=== PATIENT | male | born 1995 | race Caucasian/White ===

== ENCOUNTER 2018-08-14 22:18 | Emergency (ER) | payer OTHER ==
[~2018-08-14 22:18] MED LIST: ECO325 PO; METOPROLOL TART25 M1 PO; SER25 PO; ZES10 PO
== END 2018-08-14 22:59 | disposition left against medical advice (07) ==
LOC: ED 22:18
DX: Z53.21 Procedure and treatment not carried out due to patient leaving prior to being seen by health care provider (principal)

== ENCOUNTER 2018-08-14 23:01 | Emergency (ER) | payer OTHER ==
[~2018-08-14] VITALS: Ht 188 cm; Wt 118.4 kg
[2018-08-14 23:30] VITALS: Ht 188 cm; Wt 118.4 kg
[2018-08-15 02:15] VITALS: BP 125/75
== END 2018-08-15 02:15 | disposition left against medical advice (07) ==
LOC: ED 23:01
DX: N34.2 Other urethritis (principal); J45.909 Unspecified asthma, uncomplicated; F15.10 Other stimulant abuse, uncomplicated
CPT/HCPCS: J0696

== ENCOUNTER 2018-08-17 22:32 | Emergency (ER) | payer OTHER ==
[~2018-08-17] VITALS: Ht 188 cm; Wt 117.9 kg
[2018-08-17 22:41] VITALS: Ht 188 cm; Wt 117.9 kg
[2018-08-18 01:42] VITALS: BP 120/75
== END 2018-08-18 01:42 | disposition home or self-care (01) ==
LOC: ED 22:32
DX: N34.2 Other urethritis (principal); J45.909 Unspecified asthma, uncomplicated; F15.10 Other stimulant abuse, uncomplicated
CPT/HCPCS: 87491; 87591; J0696

== ENCOUNTER 2018-08-18 15:45 | Emergency (ER) | payer OTHER ==
[~2018-08-18] VITALS: Ht 188 cm; Wt 117.9 kg
[2018-08-18 15:50] VITALS: BP 110/86; Ht 188 cm; Wt 117.9 kg
== END 2018-08-18 16:40 | disposition left against medical advice (07) ==
LOC: ED 15:45
DX: Z53.21 Procedure and treatment not carried out due to patient leaving prior to being seen by health care provider (principal)

== ENCOUNTER 2018-08-19 12:26 | Emergency (ER) | payer OTHER ==
[~2018-08-19] VITALS: Ht 188 cm; Wt 118.8 kg
[2018-08-19 12:38] VITALS: BP 120/71; Ht 188 cm; Wt 118.8 kg
== END 2018-08-19 13:51 | disposition home or self-care (01) ==
LOC: ED 12:26
DX: T83.098A Other mechanical complication of other urinary catheter, initial encounter (principal); N48.89 Other specified disorders of penis

== ENCOUNTER 2018-08-27 20:59 | Emergency (ER) | payer OTHER ==
[~2018-08-27] VITALS: Ht 182.9 cm; Wt 118.4 kg
[2018-08-27 21:04] VITALS: Ht 182.9 cm; Wt 118.4 kg
[2018-08-27 22:25] VITALS: BP 123/61
[2018-08-27 22:30] LABS: microscopic required? NO
[2018-08-27 22:52] LABS: UA SPECIFIC GRAVITY 1.015 (1.005-1.035)
[2018-08-27 22:53] LABS: urine erythrocyte NEGATIVE (NEGATIVE)
== END 2018-08-27 22:25 | disposition home or self-care (01) ==
LOC: ED 20:59
PROVIDERS: Emergency Medicine
DX: R30.0 Dysuria (principal); N48.89 Other specified disorders of penis

== ENCOUNTER 2018-09-06 15:10 | Emergency (ER) | payer OTHER ==
[~2018-09-06] VITALS: Ht 188 cm; Wt 117.9 kg
[2018-09-06 15:27] VITALS: Ht 188 cm; Wt 117.9 kg
[2018-09-06 17:42] VITALS: BP 120/68
== END 2018-09-06 17:42 | disposition home or self-care (01) ==
LOC: ED 15:10
DX: F15.10 Other stimulant abuse, uncomplicated (principal); F20.9 Schizophrenia, unspecified; J45.909 Unspecified asthma, uncomplicated

== ENCOUNTER 2018-10-16 22:18 | Emergency (ER) | payer OTHER ==
[~2018-10-16] VITALS: Ht 188 cm; Wt 115.7 kg
[2018-10-16 22:27] VITALS: BP 142/83
== END 2018-10-17 00:12 | disposition left against medical advice (07) ==
LOC: ED 22:18
DX: Z53.21 Procedure and treatment not carried out due to patient leaving prior to being seen by health care provider (principal)

== ENCOUNTER 2018-11-22 13:22 | Emergency (ER) | payer OTHER ==
[~2018-11-22] VITALS: Ht 188 cm; Wt 116.1 kg
[2018-11-22 13:35] VITALS: BP 116/70; Ht 188 cm; Wt 116.1 kg
== END 2018-11-22 15:07 | disposition left against medical advice (07) ==
LOC: ED 13:22
DX: Z53.21 Procedure and treatment not carried out due to patient leaving prior to being seen by health care provider (principal)

== ENCOUNTER 2019-01-09 09:38 | Emergency (ER) | payer OTHER ==
[~2019-01-09] VITALS: Ht 182.9 cm; Wt 118.0 kg
[2019-01-09 09:54] VITALS: Ht 182.9 cm; Wt 118.0 kg
[2019-01-09 10:39] LABS: BASOPHIL % 0.5 % (0-2); PLATELET COUNT 278 x10^3mcL (130-400); RED CELL DISTRIBUTION WIDTH 14.5 % (11.5-14.5)
[2019-01-09 10:57] LABS: CALCIUM 7.7 mg/dL (8.5-10.1); CARBON DIOXIDE 29.5 mmol/L (21-32); CHLORIDE SERUM 104 mmol/L (98-107); CREATININE SERUM 0.9 mg/dL (0.7-1.3); GFR1 > 60 mL/min; GLUCOSE SERUM 112 mg/dL (74-106); POTASSIUM SERUM 3.8 mmol/L (3.5-5.1); SODIUM SERUM 141 mmol/L (136-145)
[2019-01-09 11:10] LABS: ALKALINE PHOSPHATASE 63 U/L (46-116); ALT/SGPT 70 U/L (16-63); AST/SGOT 30 U/L (15-37); BILIRUBIN TOTAL 0.2 mg/dL (0.20-1.00); TOTAL PROTEIN, SERUM 6.9 g/dL (6.4-8.2)
[2019-01-09 11:13] LABS: ALBUMIN 3.3 g/dL (3.4-5.0)
[2019-01-09 11:39] LABS: BILIRUBIN DIRECT 0.07 mg/dL (0.0-0.2)
[2019-01-09 11:40] VITALS: BP 134/90
[2019-01-09 11:57] LABS: AMPHETAMINE QUAL UR NONE DETECTED (See below)
== END 2019-01-09 11:40 | disposition home or self-care (01) ==
LOC: ED 09:38
PROVIDERS: Student in an Organized Health Care Education/Training Program
DX: R53.1 Weakness (principal); R44.3 Hallucinations, unspecified; J45.909 Unspecified asthma, uncomplicated
CPT/HCPCS: 36415; 84439; Q0092

== ENCOUNTER 2019-03-08 17:37 | Emergency (ER) | payer OTHER ==
[~2019-03-08] VITALS: Ht 188 cm; Wt 121.1 kg
[2019-03-08 17:43] VITALS: BP 137/76; Ht 188 cm; Wt 121.1 kg
== END 2019-03-08 19:28 | disposition left against medical advice (07) ==
LOC: ED 17:37
DX: Z53.21 Procedure and treatment not carried out due to patient leaving prior to being seen by health care provider (principal)

== ENCOUNTER 2019-03-09 17:30 | Emergency (ER) | payer OTHER ==
[~2019-03-09] VITALS: Ht 188 cm; Wt 120.7 kg
[2019-03-09 17:50] VITALS: BP 138/81; Ht 188 cm; Wt 120.7 kg
== END 2019-03-09 19:58 | disposition left against medical advice (07) ==
LOC: ED 17:30
DX: Z53.21 Procedure and treatment not carried out due to patient leaving prior to being seen by health care provider (principal)

== ENCOUNTER 2019-04-22 09:13 | Emergency (ER) | payer OTHER ==
[~2019-04-22] VITALS: Ht 188 cm; Wt 116.1 kg
[2019-04-22 09:16] VITALS: Ht 188 cm; Wt 116.1 kg
[2019-04-22 10:17] VITALS: BP 117/60
== END 2019-04-22 10:17 | disposition home or self-care (01) ==
LOC: ED 09:13
DX: S01.511A Laceration without foreign body of lip, initial encounter (principal); F17.210 Nicotine dependence, cigarettes, uncomplicated; E66.9 Obesity, unspecified; J45.909 Unspecified asthma, uncomplicated; Z68.32 Body mass index [BMI] 32.0-32.9, adult; Y04.8XXA Assault by other bodily force, initial encounter; Y93.89 Activity, other specified; Y92.89 Other specified places as the place of occurrence of the external cause; Y99.8 Other external cause status
CPT/HCPCS: 90715; 99406

== ENCOUNTER 2019-05-02 20:11 | Emergency (ER) | payer OTHER ==
[~2019-05-02] VITALS: Ht 188 cm; Wt 117.0 kg
[2019-05-02 20:17] VITALS: Ht 188 cm; Wt 117.0 kg
[2019-05-02 21:11] LABS: BASOPHIL % 0.5 % (0-2); PLATELET COUNT 293 x10^3mcL (130-400); RED CELL DISTRIBUTION WIDTH 14.5 % (11.5-14.5)
[2019-05-02 21:13] LABS: CARBON DIOXIDE 27.5 mmol/L (21-32); CHLORIDE SERUM 105 mmol/L (98-107); CREATININE SERUM 1.1 mg/dL (0.7-1.3); GFR1 > 60 mL/min; GLUCOSE SERUM 111 mg/dL (74-106); POTASSIUM SERUM 4.3 mmol/L (3.5-5.1); SODIUM SERUM 142 mmol/L (136-145)
[2019-05-02 21:16] LABS: ALBUMIN 3.8 g/dL (3.4-5.0); ALKALINE PHOSPHATASE 66 U/L (46-116); ALT/SGPT 54 U/L (16-63); AST/SGOT 16 U/L (15-37); BILIRUBIN TOTAL 0.1 mg/dL (0.20-1.00); HDL CHOLESTEROL 38 mg/dL (40-60); LIPASE 62 IU/L (73-393); TOTAL PROTEIN, SERUM 7.7 g/dL (6.4-8.2); TRIGLYCERIDES 172 mg/dL (<150)
[2019-05-02 21:17] LABS: CHOLESTEROL 128 mg/dL (<200); CHOLESTEROL/HDL RATIO 3.4
[2019-05-02 21:26] LABS: T3 TOTAL 1.62 ng/mL
[2019-05-02 21:56] LABS: FREE T4 0.92 ng/dL (0.76-1.46); FREE THYROXINE INDEX 2.4 ug/dL (1.4-4.5); T4(THYROXINE) 7.4 ug/dL (4.7-13.3)
[2019-05-02 23:02] VITALS: BP 125/75
[2019-05-02 23:31] LABS: microscopic required? NO
[2019-05-03 00:15] LABS: UA SPECIFIC GRAVITY <=1.005 (1.005-1.035); urine erythrocyte NEGATIVE (NEGATIVE)
[2019-05-03 01:20] LABS: AMPHETAMINE QUAL UR NONE DETECTED (See below)
== END 2019-05-02 22:50 | disposition home or self-care (01) ==
LOC: ED 20:11
PROVIDERS: Specialist
DX: R55 Syncope and collapse (principal); F10.129 Alcohol abuse with intoxication, unspecified; J45.909 Unspecified asthma, uncomplicated
CPT/HCPCS: 83880; 84439; G0480; J7030; Q0092

== ENCOUNTER 2019-05-22 16:31 | Emergency (ER) | payer OTHER ==
[~2019-05-22] VITALS: Ht 188 cm; Wt 108.4 kg
[2019-05-22 16:38] VITALS: Ht 188 cm; Wt 108.4 kg
[2019-05-22 18:06] VITALS: BP 134/79
== END 2019-05-22 18:06 | disposition home or self-care (01) ==
LOC: ED 16:31
DX: J10.1 Influenza due to other identified influenza virus with other respiratory manifestations (principal)
CPT/HCPCS: 87804

== ENCOUNTER 2019-06-13 09:17 | Emergency (ER) | payer OTHER ==
[~2019-06-13] VITALS: Ht 188 cm; Wt 118.4 kg
[2019-06-13 09:27] VITALS: Ht 188 cm; Wt 118.4 kg
[2019-06-13 12:18] VITALS: BP 131/95
== END 2019-06-13 12:18 | disposition home or self-care (01) ==
LOC: ED 09:17
DX: S39.012A Strain of muscle, fascia and tendon of lower back, initial encounter (principal); X58.XXXA Exposure to other specified factors, initial encounter; Y93.89 Activity, other specified; Y92.89 Other specified places as the place of occurrence of the external cause; Y99.8 Other external cause status

== ENCOUNTER 2019-08-07 09:30 | Emergency (ER) | payer OTHER ==
[~2019-08-07] VITALS: Ht 190.5 cm; Wt 117.0 kg
[2019-08-07 09:40] VITALS: BP 109/74; Ht 190.5 cm; Wt 117.0 kg
[2019-08-07 10:28] LABS: CALCIUM 8.1 mg/dL (8.5-10.1); CARBON DIOXIDE 25.1 mmol/L (21-32); CHLORIDE SERUM 105 mmol/L (98-107); GFR1 > 60 mL/min; GLUCOSE SERUM 127 mg/dL (74-106); POTASSIUM SERUM 3.6 mmol/L (3.5-5.1); SODIUM SERUM 141 mmol/L (136-145)
[2019-08-07 10:44] LABS: AMPHETAMINE QUAL UR POSITIVE (See below)
[2019-08-07 11:03] LABS: PLATELET COUNT 300 x10^3mcL (130-400); RED CELL DISTRIBUTION WIDTH 15.2 % (11.5-14.5)
[2019-08-07 11:04] LABS: BASOPHIL % 0.6 % (0-2)
== END 2019-08-07 11:14 | disposition home or self-care (01) ==
LOC: ED 09:30
PROVIDERS: Emergency Medicine
DX: R53.1 Weakness (principal)
CPT/HCPCS: 36415

== ENCOUNTER 2019-09-03 11:06 | Emergency (ER) | payer OTHER | END 2019-09-03 12:08 | disposition left against medical advice (07) | LOC: ED 11:06 | DX: Z53.21 Procedure and treatment not carried out due to patient leaving prior to being seen by health care provider (principal) ==

== ENCOUNTER 2019-10-01 22:12 | Emergency (ER) | payer OTHER ==
[~2019-10-01] VITALS: Ht 188 cm; Wt 116.6 kg
[2019-10-01 23:19] VITALS: BP 128/82
== END 2019-10-01 23:19 | disposition home or self-care (01) ==
LOC: ED 22:12
DX: B35.6 Tinea cruris (principal); L08.9 Local infection of the skin and subcutaneous tissue, unspecified

== ENCOUNTER 2019-11-04 19:03 | Emergency (ER) | payer OTHER ==
[~2019-11-04] VITALS: Ht 185.4 cm; Wt 116.2 kg
[2019-11-04 19:13] VITALS: Ht 185.4 cm; Wt 116.2 kg
[2019-11-04 20:25] VITALS: BP 117/75
== END 2019-11-04 20:25 | disposition home or self-care (01) ==
LOC: ED 19:03
DX: R42 Dizziness and giddiness (principal); R51 Headache; F41.9 Anxiety disorder, unspecified; F15.10 Other stimulant abuse, uncomplicated
CPT/HCPCS: 82962; 99406

== ENCOUNTER 2019-11-14 19:08 | Emergency (ER) | payer OTHER ==
[~2019-11-14] VITALS: Ht 182.9 cm; Wt 115.7 kg
[2019-11-14 19:13] VITALS: Ht 182.9 cm; Wt 115.7 kg
[2019-11-14 19:45] VITALS: BP 137/75
== END 2019-11-14 19:45 | disposition home or self-care (01) ==
LOC: ED 19:08
DX: F41.9 Anxiety disorder, unspecified (principal); Z76.0 Encounter for issue of repeat prescription; F17.210 Nicotine dependence, cigarettes, uncomplicated; Z71.6 Tobacco abuse counseling
CPT/HCPCS: 99406

== ENCOUNTER 2019-11-27 19:32 | Emergency (ER) | payer OTHER ==
[~2019-11-27] VITALS: Ht 182.9 cm; Wt 115.2 kg
[2019-11-27 19:53] VITALS: Ht 182.9 cm; Wt 115.2 kg
[2019-11-27 20:51] VITALS: BP 135/83
== END 2019-11-27 20:51 | disposition home or self-care (01) ==
LOC: ED 19:32
DX: R42 Dizziness and giddiness (principal)
CPT/HCPCS: 82962; J8597

== ENCOUNTER 2019-12-15 13:26 | Emergency (ER) | payer OTHER ==
[~2019-12-15] VITALS: Ht 188 cm; Wt 116.6 kg
[2019-12-15 13:42] VITALS: BP 143/72; Ht 188 cm; Wt 116.6 kg
== END 2019-12-15 15:15 | disposition left against medical advice (07) ==
LOC: ED 13:26
DX: Z53.21 Procedure and treatment not carried out due to patient leaving prior to being seen by health care provider (principal)

== ENCOUNTER 2020-03-18 19:31 | Emergency (ER) | payer OTHER ==
[~2020-03-18] VITALS: Ht 182.9 cm; Wt 113.4 kg
[2020-03-18 20:06] VITALS: BP 132/74; Ht 182.9 cm; Wt 113.4 kg
== END 2020-03-18 21:29 | disposition home or self-care (01) ==
LOC: ED 19:31
DX: M25.562 Pain in left knee (principal); J45.909 Unspecified asthma, uncomplicated

== ENCOUNTER 2020-04-05 18:19 | Emergency (ER) | payer OTHER ==
[~2020-04-05] VITALS: Ht 167.6 cm; Wt 114.3 kg
[2020-04-05 18:29] VITALS: Ht 167.6 cm; Wt 114.3 kg
== END 2020-04-05 19:00 | disposition home or self-care (01) ==
LOC: ED 18:19
DX: N48.29 Other inflammatory disorders of penis (principal); J45.909 Unspecified asthma, uncomplicated

== ENCOUNTER 2020-05-13 14:51 | Emergency (ER) | payer OTHER ==
[~2020-05-13] VITALS: Ht 190.5 cm; Wt 124.3 kg
[2020-05-13 14:56] VITALS: Ht 190.5 cm; Wt 124.3 kg
[2020-05-13] MEDS ORDERED: PROAIR DIGIHAL90 MCG IH (15:41)
[2020-05-13 16:11] VITALS: BP 145/90
== END 2020-05-13 16:11 | disposition home or self-care (01) ==
LOC: ED 14:51
DX: N48.29 Other inflammatory disorders of penis (principal); J45.909 Unspecified asthma, uncomplicated; Z76.0 Encounter for issue of repeat prescription